=== PATIENT | male | born 1950 | race Hispanic/Latino ===

== ENCOUNTER 2017-01-04 09:20 | Day surgery (SDC) | payer MEDICARE, BC ==
[2016-12-23 08:57] VITALS: BMI 34.1
[2017-01-04] MEDS ORDERED: Vancomycin 1gm in NS 250ml 1 GM/250 ML BAG IVPB STA (11:23)
[2017-01-04] MEDS ORDERED: Propofol 10 mg/ml Inj (20 ML) ONE (11:27)
[2017-01-04] MEDS ORDERED: Midazolam 2 MG/2 ML VIAL ONE (11:28)
[2017-01-04] MEDS ORDERED: Phenylephrine 10 mg/ml Inj ONE (11:29)
[2017-01-04] MEDS ORDERED: Lidocaine 2% Inj (20ml) ONE (11:29)
[2017-01-04] MEDS ORDERED: Iohexol 240 (50 ml) ONE (11:33)
[2017-01-04] MEDS ORDERED: Vancomycin 1 g Inj ONE (11:33)
[2017-01-04] MEDS ORDERED: HYDROmorphone 0.5 mg/0.5 ml ISec IVP PRN (12:17)
[2017-01-04] MEDS ORDERED: Sodium Chloride 0.9% 1,000 ML IV SCH (12:30)
[2017-01-04 12:47] VITALS: O2SAT 96
[2017-01-04 14:02] VITALS: BP 159/92; PULSE 60; RESP 18; TEMP 98
--- NOTE | 2017-01-04 15:52 | OP ---
PROCEDURE DATE: 01/04/2017 PREOPERATIVE DIAGNOSIS: Urethral strictures. POSTOPERATIVE DIAGNOSIS: Urethral strictures. PROCEDURE: Urethral dilation with sounds and cystoscopy and Combs catheter insertion. ATTENDING SURGEON: Dr. Paco Benavides. ANESTHESIA: General. SPECIMENS: None. DRAINS: An 18-Azerbaijani 2-way Combs catheter. COMPLICATIONS: None. OPERATIVE FINDINGS: After informed consent was obtained, the patient was taken to the operating room and placed on the operating table. Anesthesia was administered. The patient had received intravenous antibiotics prior to start of the procedure. On exam, the patient has a tight urethral meatus almost pinpoint. The patient has a history of Carlos Enrique's gangrene. He has also vitiligo of the glans. At this point, male urethral sounds were obtained. The urethral meatus was then dilated from 12-Azerbaijani sound to a 26-Azerbaijani sound. There was some tearing at the 6 o'clock position. At this point, after this dilation of the meatus a 22-Azerbaijani cystoscope was obtained. It was placed into the meatus. There was a second stricture noted in the fossa navicularis which had been dilated with the sounds. The cystoscope was advanced proximally in the mid penile urethra. There are multiple annular rings with a whitish plaque on it noted. The cystoscope was able to be manipulated through these further strictures and into the bulbar urethra. There was a large amount of inflammation noted in the membranous urethra. The prostate appeared to have enlarged lateral lobes with enlarged median lobe and high bladder neck. The scope was able to passed into the bladder and a full survey inspection was performed. There were no stones, papillary tumors or foreign bodies noted. There was grade 2 trabeculation with small bladder diverticulum noted on the superior-posterior wall. Both urethral orifices were visualized and appeared within normal limits. At this point, the cystoscope was then withdrawn under direct vision. The bladder was left full and an 18-Azerbaijani 2-way Combs catheter was then able to be passed into the bladder at least to straight drainage. The plan will be to continue antibiotics for patient's urinary infection. The patient is instructed to use steroid cream on the vitiligo around the urethral meatus. He will be discharged with a Combs catheter which will be removed in my office and he will continue followup there. The patient tolerated the procedure well. The patient was returned to the supine position and taken to the recovery room awake in stable condition. Paco Benavides MD
== END 2017-01-04 14:35 | disposition home or self-care (01) ==
LOC: SDS 09:20
PROVIDERS: ATTEND Urology
DX: N35.9 Urethral stricture, unspecified (principal); N32.3 Diverticulum of bladder; L80 Vitiligo
CPT/HCPCS: 52281; A4358; J1170; J2250; J2370; J2405; J2704; J3010; J7040; J7120

== ENCOUNTER 2018-02-10 08:03 | Day surgery (SDC) | payer MEDICARE, BC ==
[2018-02-10 08:38] VITALS: BMI 34.1
[2018-02-10] MEDS ORDERED: Propofol 10 mg/ml Inj (20 ML) ONE (09:25)
[2018-02-10] MEDS ORDERED: Lactated Ringer's 1,000 ML IV SCH (09:30)
[2018-02-10] MEDS ORDERED: Ciprofloxacin 400mg/200ml D5W 400 MG/200 ML BAG IVPB ONE (09:36)
[2018-02-10] MEDS ORDERED: Ciprofloxacin 400mg/200ml D5W IVPB ONE (09:40)
[2018-02-10 10:52] VITALS: O2SAT 95
[2018-02-10 11:18] VITALS: BP 131/64; PULSE 61; RESP 20; TEMP 97.8
--- NOTE | 2018-02-10 21:25 | OP ---
PROCEDURE DATE: 02/10/2018 PREOPERATIVE DIAGNOSES: Urethral strictures, balanitis xerotica obliterans. POSTOPERATIVE DIAGNOSES: Urethral strictures, balanitis xerotica obliterans. PROCEDURE: A cystoscopy, urethral dilation with sounds. ATTENDING SURGEON: Paco Benavides MD. ANESTHESIA: General. SPECIMENS: There were none. DRAINS: A 20-Burmese two-way Combs catheter. COMPLICATIONS: There were none. OPERATIVE FINDINGS: After informed consent was obtained, the patient was taken to the operating room, placed on the operating table. Anesthesia was administered. The patient was placed in dorsal lithotomy position and prepped and draped in the usual sterile fashion. The patient received IV antibiotics prior to start of the procedure. On exam, the patient had extensive balanitis xerotica obliterans with changing pigmentation on the glans. The urethral meatus was visualized. It appeared somewhat tight. The patient has a history of Carlos Enrique's gangrene in the past and has had a meatoplasty with recurrent submeatal stenosis. At this point, using curved Gómez sounds, the urethra was then dilated. Initially, it was difficult to pass a 16-Burmese sound and dilation was then started with 12-Burmese sound. The urethra was easily dilated with the sounds up to a size of 28-Burmese. After the distal urethra had been dilated, a cystoscopy was performed. A 22-Burmese scope was placed in the patient's urethra and advanced proximally under direct vision. There were multiple narrowings and strictures with inflammation noted throughout the urethra. The bulbar urethra appeared opened. The prostatic urethra was opened. The prostate was mildly enlarged with lateral lobes; however, there did not appear to be prostatic occlusion of the bladder neck. The bladder was entered. A full survey inspection was performed. There were no stones, tumors or foreign bodies noted. There was grade 1 to 2 trabeculation noted. There were multiple cellules noted. There was a diverticulum noted at the dome and one on the superior posterior wall. There were no other abnormal findings in the bladder. Both ureteral orifices were visualized and appeared within normal limits. At this point, the scope was withdrawn under direct vision. The previously noted strictures were opened in the proximal pendulous urethra. The more serious strictures appeared to be in the distal penile urethra. These were opened with the sounds and dilation. The scope was then removed and a 20-Burmese two-way Combs catheter was passed and placed to straight bladder drainage. The patient tolerated the procedure well. He was returned to the supine position and taken to the recovery room awake in stable condition. Paco Benavides MD
== END 2018-02-10 13:00 | disposition home or self-care (01) ==
LOC: SDS 08:03
PROVIDERS: ATTEND Urology
DX: N35.9 Urethral stricture, unspecified (principal); N48.0 Leukoplakia of penis; N32.3 Diverticulum of bladder
CPT/HCPCS: 52281; A4358; J0744; J2405; J2704; J3010; J7120 ×2